=== PATIENT | male | born 1960 | race Caucasian/White ===

== ENCOUNTER 2023-10-21 21:10 | Emergency (ER) | payer SELFPAY ==
[~2023-10-21] VITALS: Ht 177.8 cm; Wt 81.8 kg
[~2023-10-21 21:10] MED LIST: ASPIRIN 81M81 MG/TA2 PO; GLUCOPHAGE500 MG/TAB PO; PRINIVIL20 MG PO; ZESTORETIC 12.51 TAB PO; ZOCOR 10MG10 MG PO
[2023-10-21 21:11] VITALS: TEMP 97.5
[2023-10-21 21:29] LABS: BASO # 0.1 K/mm3 (0.0-0.2); BASO % 1.3 % (0.0-2.0); EOS # 0.4 K/mm3 (0.0-0.7); EOS % 3.9 % (0.0-4.0); GRAN # 4.6 K/mm3 (1.4-6.5); GRAN % 47.8 % (42.2-75.2); HEMATOCRIT 45.4 % (42.0-52.0); HEMOGLOBIN 15.2 g/dl (13.5-18.0); LYMPH # 3.6 K/mm3 (1.2-3.4); LYMPH % 37.8 % (20.0-51.0); MEAN CELL VOLUME 92 fl (80.0-100.0); MEAN CORPUSCULAR HEMOGLOBIN 31 pg (27-31); MEAN CORPUSCULAR HGB CONC 34 g/dl (33.0-37.0); MEAN PLATELET VOLUME 10.1 fl (7.4-10.4); MONO # 0.8 K/mm3 (0.1-0.6); MONO % 8.5 % (1.7-9.3); PLATELET COUNT 214 K/mm3 (130-400); RED BLOOD COUNT 4.93 M/mm3 (4.20-5.60); REDCELL DISTRIBUTION WIDTH-CV 14.3 % (11.5-14.5)
[2023-10-21 21:37] LABS: INR 1.2 (0.8-3.0); PROTHROMBIN TIME 12.9 SECONDS (9.7-12.8)
[2023-10-21 21:48] LABS: ALANINE AMINOTRANSFERASE 20 U/L (0-55); ALBUMIN 3.7 g/dL (3.4-4.8); ALCOHOL(ethanol),MEDICAL < 10 mg/dL (0-10); ALKALINE PHOSPHATASE 93 U/L (40-150); ANION GAP 10 mmol/L (7-16); AST,SGOT 19 U/L (5-34); BILIRUBIN,TOTAL 0.6 mg/dL (0.2-1.2); BLOOD UREA NITROGEN 16 mg/dL (8-26); CALCIUM 9.1 mg/dL (8.4-10.2); CHLORIDE 107 mEq/L (98-107); CREATININE, serum 1.04 mg/dL (0.72-1.25); GLUCOSE 117 mg/dL (70-99); POTASSIUM 3.7 mEq/L (3.5-4.5); SODIUM 138 mEq/L (136-145); TOTAL PROTEIN 7.6 g/dl (6.2-8.1)
[2023-10-21] MEDS ORDERED: NS 1,000 ML IV ONE (23:00)
[2023-10-21] MEDS ORDERED: levETIRAcetam 1,000 MG in Syringe 1 EACH IV ONE (23:00)
[2023-10-21] MEDS ORDERED: Iohexol 300 - 100 ML VIAL IV ONE (23:20)
[2023-10-21] MEDS ORDERED: NS 50 ML IV ONE (23:25)
[2023-10-22 00:10] VITALS: BP 166/80; PULSE 74
== END 2023-10-22 00:22 | disposition short-term general hospital (02) ==
LOC: COL.ER 21:10
PROVIDERS: Family Medicine
DX: S06.30AA Unspecified focal traumatic brain injury with loss of consciousness status unknown, initial encounter (principal); S02.40FA Zygomatic fracture, left side, initial encounter for closed fracture; S02.19XA Other fracture of base of skull, initial encounter for closed fracture; S61.012A Laceration without foreign body of left thumb without damage to nail, initial encounter; V29.99XA Rider (driver) (passenger) of other motorcycle injured in unspecified traffic accident, initial encounter; Y93.55 Activity, bike riding; Y92.410 Unspecified street and highway as the place of occurrence of the external cause
CPT/HCPCS: J1953; J7030; Q9967